=== PATIENT | male | born 1995 | race Caucasian/White ===

== ENCOUNTER 2016-06-25 11:47 | Inpatient (IN) | payer MEDICAID ==
[~2016-06-25] VITALS: Ht 182.9 cm; Wt 63.5 kg
[~2016-06-25 11:47] MED LIST: IBUPROFEN600 MG ORAL; NORCO 5-325 TA1 EACH ORAL; PENICILLIN V P500 MG PO; PREDNISONE20 MG ORAL
[2016-06-25 12:00] VITALS: BP 119/66
[2016-06-25] MEDS ORDERED: NKM (12:00)
[2016-06-25] MEDS ORDERED: Ipratropium 0.02% Inh Soln 2.5ml UD HHN ONE (12:15)
[2016-06-25] MEDS ORDERED: cefTRIAXone 1 GM in NS 55 ML IV ONE (12:15)
[2016-06-25] MEDS ORDERED: fentaNYL 100 mcg/2 mL IV ONE (12:15)
[2016-06-25] MEDS ORDERED: Albuterol ud Inhalation HHN ONE ×2 (12:15→14:30)
[2016-06-25] MEDS ORDERED: Solu-MEDROL 125mg Inj IVP ONE (12:15)
[2016-06-25] MEDS ORDERED: Azithromycin 500 MG in NS 275 ML IV ONE (12:15)
--- NOTE | 2016-06-25 12:33 | Emergency Room Report ---
History of Present Illness General Chief Complaint: Upper Respiratory Illness Source: Patient Present Illness HPI Patient presents with dyspnea and cough wheezing and in fevers and not eating. This worsened over the last few weeks. He is taken several doses of amoxicillin and didn't get better. He smokes. He's never had a diagnosis of asthma. He's had difficulty sleeping because of dyspnea and also cough and wheezing. He has abdominal pain due to cough. He denies any vomiting or diarrhea. This has been going on for several weeks with worsening over the past 3-4 days. Slight headache. No dizziness. No rashes. No extremity pain. No flu shot. 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 Reviewed Nursing Documentation: PMH: Agreed, PSxH: Agreed Nursing Documentation-PMH Past Medical History: No Stated History Review of Systems All Other Systems: negative except mentioned in HPI Physical Exam Vital Signs Date Time Temp Pulse Resp B/P Pulse Ox O2 Delivery O2 Flow Rate FiO2 06/25/16 11:51 98.8 123 24 112/72 92 Room Air Sp02 EP Interpretation: reviewed, normal, abnormal - low as interpreted by me General Appearance: well appearing, no apparent distress, GCS 15 Head: normocephalic Eyes: bilateral eye PERRL, bilateral eye normal inspection ENT: moist mucus membranes Neck: supple Respiratory: rales - R, wheezing, expiration, inspiration Cardiovascular #1: regular rate, rhythm Cardiovascular #2: 2+ radial (R) Gastrointestinal: normal inspection, normal bowel sounds, non tender, no mass, non-distended Musculoskeletal: back normal, gait/station normal, normal range of motion Neurologic: alert, oriented x3, grossly normal Psychiatric: mood/affect normal Skin: normal inspection, warm/dry Medical Decision Making Diagnostic Impression: Primary Impression: Influenza A Additional Impressions: Bronchospasm Hypoxia ER Course Patient presents with bronchospasm and hypoxia. No prior history of asthma. DDx: pneumonia, bronchitis, new onset asthma. Patient in mild distress with hypoxia and needs emergent evaluation with labs including blood cultures and influenza. Treatment with IV hydration, breathing treatments and initiation of antibiotics. Labs with normal WBC. CXR without infiltrate. + influenza A. Tamiflu started. Still with wheezing and NG with hypoxia, though somewhat improved. Repeat treatment. Admit med Dr. Norwood. Rhythm Strip Diag. Results EP Interpretation: yes Rhythm: NSR, no PVC's, no ectopy Chest X-Ray Diagnostic Results EP Interpretation: Yes Findings: no consolidation, no effusion, no pneumothorax, no acute cardiopulmonary disease Number of Views: 1 Status: improved Disposition: ADMITTED INPATIENT Condition: Serious Referrals: KWASI MCPHERSON M.D. (PCP) Robles Mcmanus M.D. Jun 25, 2016 12:33
[2016-06-25] MEDS ORDERED: Azithromycin Inj IV ONE (12:43)
[2016-06-25] MEDS ORDERED: NS 55 ML IV ONE (12:45)
[2016-06-25] MEDS ORDERED: NS 275 ML ONE (12:45)
[2016-06-25] MEDS ORDERED: Tubing IV Cassette IV ONE (12:45)
[2016-06-25] MEDS ORDERED: Tubing IV Secondary IV ONE (12:45)
[2016-06-25 12:55] LABS: BASOPHILS % (AUTO) 1.3 % (0.0-2.0); EOSINOPHILS % (AUTO) 0.3 % (0.0-3.0); MEAN CORPUSCULAR HEMOGLOBIN 33.3 PG (27.0-31.0); MEAN CORPUSCULAR HGB CONC 34.1 G/DL (32.0-36.0); MEAN CORPUSCULAR VOLUME 98 FL (80-99); MEAN PLATELET VOLUME 6.3 FL (6.5-10.1); NEUTROPHILS % (AUTO) 84.4 % (45.0-75.0); PLATELET COUNT 180 K/UL (150-450); RED BLOOD COUNT 4.64 M/UL (4.70-6.10); RED CELL DISTRIBUTION WIDTH 11.6 % (11.6-14.8); WHITE BLOOD COUNT 9.3 K/UL (4.8-10.8)
[2016-06-25 13:02] LABS: INR 1.1 (0.9-1.1); PROTHROMBIN TIME 11.3 SEC (9.30-11.50)
[2016-06-25 13:10] LABS: ALANINE AMINOTRANSFERASE 11 U/L (3-41); ALBUMIN/GLOBULIN RATIO 1.5 (1.0-2.7); ANION GAP 19 (5-15); ASPARTATE AMINO TRANSFERASE 19 U/L (5-40); CARBON DIOXIDE 23 mEQ/L (20-30); CHLORIDE 96 mEQ/L (98-107); CREATININE 0.8 mg/dL (0.7-1.2); GLOMERULAR FILTRATION RATE > 60 mL/min (>60); HEMOLYSIS 6; POTASSIUM 3.9 mEQ/L (3.4-4.9); SODIUM 138 mEQ/L (135-145)
[2016-06-25] MEDS ORDERED: Oseltamivir 75mg cap ORAL STA (13:14)
[2016-06-25 13:31] LABS: BILIRUBIN,DIRECT 0.3 mg/dL (0.1-0.3)
[2016-06-25 14:00] VITALS: BP 129/71
[2016-06-25 15:19] VITALS: BP 123/49
--- NOTE | 2016-06-25 15:26 | Diagnostic Imaging Report ---
Indication: COUGH Technique: One view of the chest Comparison: 08/29/2011 Findings: Lungs and pleural spaces are clear. Heart size is normal . No significant change Impression: No acute process
[2016-06-25] MEDS ORDERED: Nitroglycerin Subl 0.4mg tab (Bottle Of 25) SL PRN (18:00)
[2016-06-25] MEDS ORDERED: LORazepam Inj 2mg/ml 1ml IV PRN (18:00)
[2016-06-25] MEDS ORDERED: Morphine Sulfate 2mg/ml Inj IVP PRN (18:00)
[2016-06-25] MEDS ORDERED: Ketorolac 30mg Inj IV PRN (18:00)
[2016-06-25] MEDS: Solu-MEDROL 125mg Inj IV SCH (19:01)
[2016-06-25] MEDS: Theophylline ER 100mg ORAL SCH (20:44)
[2016-06-25] MEDS: Zoysn 3.37gm in D5W 110ml IVPB SCH (20:45)
[2016-06-25] MEDS ORDERED: NovoLOG Insulin Flexpen SUBQ SCH (21:00)
[2016-06-25] MEDS: Heparin 5000 units/ml inj SUBQ SCH (21:12)
[2016-06-25 21:18] VITALS: BP 97/68
[2016-06-25] MEDS ORDERED: Piperacillin/Tazobactam 2.25 GM in D5W 55 ML IV SCH (22:00)
[2016-06-25] MEDS: DuoNeb 0.5-3(2.5)mg/3ml neb HHN PRN (23:20)
[2016-06-26] VITALS: BP 124/55
[2016-06-26] MEDS: Solu-MEDROL 125mg Inj IV SCH ×4 (00:23→17:18)
[2016-06-26] MEDS: Zoysn 3.37gm in D5W 110ml IVPB SCH ×3 (03:55→20:12)
[2016-06-26 04:00] VITALS: BP 122/61
[2016-06-26] MEDS: DuoNeb 0.5-3(2.5)mg/3ml neb HHN PRN ×4 (07:58→22:18)
[2016-06-26 08:20] VITALS: BP 132/63
[2016-06-26] MEDS: Heparin 5000 units/ml inj SUBQ SCH ×2 (08:28→20:12)
[2016-06-26] MEDS: Theophylline ER 100mg ORAL SCH ×2 (09:00→20:12)
[2016-06-26 11:52] VITALS: BP 128/49
[2016-06-26 16:01] VITALS: BP 123/67
[2016-06-26 20:01] VITALS: BP 122/72
--- NOTE | 2016-06-26 22:47 | History and Physical ---
History of Present Illness General Date patient seen: Jun 26, 2016 Reason for Hospitalization: Upper Respiratory Illness Present Illness HPI 20 year old patient presents with dyspnea and cough wheezing and in fevers and not eating. This worsened over the last few weeks. He is taken several doses of amoxicillin and didn't get better. This has been going on for several weeks with worsening over the past 3-4 days. He was diagnosed to have H-flu and admitted for symptomatic treatment. Allergies: Coded Allergies: No Known Allergies (Unverified , 07/09/13) Medication History Scheduled Ibuprofen* (Motrin*), 600 MG ORAL Q8H No Known Medications* (NKM - No Known Medications*), 0 ., (Reported) Penicillin V Potassium* (Penvk*), 500 MG PO Q12HR Prednisone* (Prednisone*), 60 MG ORAL DAILY Scheduled PRN Hydrocodone Bit/Acetaminophen 5-325* ([place] 5-325*), 1 TAB ORAL Q6H PRN for For Pain Ibuprofen* (Motrin*), 600 MG ORAL Q8H PRN for For Pain Patient History Healthcare decision maker Resuscitation status Full Code Advanced Directive on File Past Medical/Surgical History Past Medical/Surgical History: (1) No significant past medical history Review of Systems All Other Systems: negative except mentioned in HPI Physical Exam Lines, tubes and drains: peripheral HEENT: normocephalic Neck: non-tender, normal inspection Respiratory/Chest: chest wall non-tender, lungs clear Cardiovascular/Chest: normal peripheral pulses, regular rhythm Abdomen: normal bowel sounds, non tender Genitourinary/Rectal: normal genital exam Last 24 Hour Vital Signs Date Time Temp Pulse Resp B/P Pulse Ox O2 Delivery O2 Flow Rate FiO2 06/26/16 22:10 95 18 100 Room Air 06/26/16 22:00 90 18 98 Room Air 06/26/16 20:01 97.9 67 20 122/72 94 Room Air 06/26/16 19:00 Room Air 06/26/16 19:00 Room Air 06/26/16 16:01 97.5 96 22 123/67 92 Room Air 06/26/16 14:44 92 18 98 Room Air 06/26/16 14:44 85 18 98 Room Air 06/26/16 14:44 92 18 99 Room Air 06/26/16 14:44 85 18 98 Room Air 21 06/26/16 11:52 97.5 101 20 128/49 100 Room Air 06/26/16 11:35 81 18 97 Room Air 06/26/16 11:35 91 18 97 Room Air 06/26/16 11:35 84 18 98 Room Air 21 06/26/16 11:35 91 18 100 Room Air 06/26/16 08:57 98.5 06/26/16 08:20 98.5 117 20 132/63 93 Room Air 06/26/16 07:58 82 18 96 Room Air 21 06/26/16 07:58 79 18 96 Room Air 06/26/16 07:58 90 18 100 Room Air 06/26/16 07:58 90 18 96 Room Air 06/26/16 04:00 97.3 74 20 122/61 93 Room Air 06/26/16 02:25 95 20 95 Room Air 21 06/26/16 02:25 95 18 95 Room Air 06/26/16 00:00 96.8 102 20 124/55 97 Room Air 06/25/16 23:26 100 18 100 Room Air 06/25/16 23:25 99 18 95 Room Air 06/25/16 23:20 105 20 99 Room Air 21 06/25/16 23:15 99 18 96 Room Air Intake and Output 06/25/16 06/26/16 19:00 07:00 Intake Total 1330 ml 942.5 ml Balance 1330 ml 942.5 ml Intake Oral 750 ml IV Total 1330 ml 192.5 ml # Voids 3 Height (Feet): 6 Height (Inches): 0.00 Weight (Pounds): 140 Medications Current Medications Medications (Trade) Dose Ordered Sig/Heather Route PRN Reason Start Time Stop Time Status Last Admin Dose Admin Albuterol/ Ipratropium (DuoNeb 0.5-3(2.5)mg/3ml) 3 ml Q4H PRN HHN dyspnea 06/25/16 18:00 06/30/16 17:59 06/26/16 22:18 Dextrose STAT PRN IV Hypoglycemia 06/25/16 18:30 07/25/16 18:29 Heparin Sodium (Porcine) (Heparin 5000 units/ml) 5,000 units EVERY 12 HOURS SUBQ 06/25/16 21:00 07/25/16 20:59 1/25/17 20:12 Ketorolac Tromethamine (Toradol 30mg) 30 mg Q8H PRN IV moderate pain 4-6 06/25/16 18:00 06/30/16 17:59 06/26/16 08:27 Lorazepam (Ativan 2mg/ml 1ml) 0.5 mg Q4H PRN IV For Anxiety 06/25/16 18:00 07/02/16 17:59 Methylprednisolone Sodium Succinate (Solu-MEDROL) 60 mg EVERY 6 HOURS IV 06/25/16 18:30 07/25/16 18:29 06/26/16 17:18 Morphine Sulfate (Morphine Sulfate) 2 mg Q4H PRN IVP Severe Pain (Pain Scale 7-10) 06/25/16 18:00 07/02/16 17:59 06/26/16 17:19 Nitroglycerin (Ntg) 0.4 mg Q5M X 3 DOSES PRN SL Prn Chest Pain 06/25/16 18:00 07/25/16 17:59 Ondansetron HCl (Zofran) 4 mg Q6H PRN IVP Nausea & Vomiting 06/25/16 18:00 07/25/16 17:59 Piperacillin Sod/ Tazobactam Sod/ Dextrose (Zosyn/D5W) 110 ml @ 27.5 mls/hr Q8H IVPB 06/25/16 20:00 07/02/16 19:59 06/26/16 20:12 Promethazine HCl/ Codeine (Phenergan with Codeine) 5 ml Q6H PRN ORAL cough 06/25/16 18:00 07/25/16 17:59 Temazepam (Restoril) 15 mg HSPRN PRN ORAL Insomnia 06/25/16 21:00 07/02/16 20:59 06/25/16 23:03 Theophylline (Lester-Dur) 100 mg EVERY 12 HOURS ORAL 06/25/16 21:00 07/25/16 20:59 06/26/16 20:12 Assessment/Plan Problem List: (1) Asthmatic bronchitis with exacerbation ICD Codes: J45.901 - Unspecified asthma with (acute) exacerbation SNOMED: 009092574 (2) Influenza A ICD Codes: J10.1 - Influenza due to other identified influenza virus with other respiratory manifestations SNOMED: 619282889 (3) Bronchospasm ICD Codes: J98.01 - Acute bronchospasm SNOMED: 8144922 (4) Strep pharyngitis ICD Codes: J02.0 - Streptococcal pharyngitis SNOMED: 10379481 Assessment/Plan IV antibiotics respiratory treatment ID to see IGGY EDWARDS Jun 26, 2016 22:47
--- NOTE | 2016-06-26 22:57 | Consultation ---
Consult Note Consult Note ID Dic # [id number] CLAY YIN M.D. Jun 26, 2016 22:57
[2016-06-27] VITALS: BP 124/70
[2016-06-27] MEDS ORDERED: Azithromycin Inj IV ONE (00:20)
[2016-06-27] MEDS: Oseltamivir 75mg cap ORAL SCH ×3 (00:30→09:57)
[2016-06-27] MEDS: Promethazine/Codeine 5ml UD ORAL PRN ×2 (00:30→09:57)
[2016-06-27] MEDS: Solu-MEDROL 125mg Inj IV SCH ×4 (00:30→09:57)
[2016-06-27] MEDS ORDERED: Azithromycin 500 MG in D5W 275 ML IV SCH (01:00)
[2016-06-27 04:00] VITALS: BP 121/71
--- NOTE | 2016-06-27 05:07 | Consultation ---
DATE OF CONSULTATION: INFECTIOUS DISEASE CONSULTATION CONSULTING PHYSICIAN: Cas Carrera M.D. REFERRING PHYSICIAN: Brannon Norwood M.D. REASON FOR CONSULTATION: Influenza, probable pneumonia, and antibiotic management. HISTORY OF PRESENT ILLNESS: The patient is a 20-year-old male, who came to the hospital for cough that is productive and wheezing. The patient had influenza test came positive. The patient took amoxicillin for two days. He felt significant improvement. The patient is a smoker. An Infectious Disease consultation has been requested for further evaluation of the patient's antibiotic management. PAST MEDICAL HISTORY: Significant for asthma. ALLERGIES: No known drug allergies. SOCIAL HISTORY: . REVIEW OF SYSTEMS: A 10-point review was done except for what was mentioned was negative. PHYSICAL EXAMINATION: VITAL SIGNS: Temperature 97.9, T-max 100.9 degrees, pulse 86, respiratory rate 18, and blood pressure 132/72. HEENT: Mild pale conjunctivae. No icterus. CHEST: Coarse breathing sounds. HEART: S1 and S2. ABDOMEN: Soft and nontender. EXTREMITIES: No cyanosis. NEUROLOGIC: Awake. LABORATORY DATA: White blood cells 9.3, hemoglobin 16, and platelets 118. BUN 12 and creatinine 0.8. ALT, AST and alkaline phosphatase are within normal range. was obtained, positive for influenza A. Sputum culture is pending. Chest x-ray, no acute process. ASSESSMENT: The patient is a 20-year-old male with multiple medical problems was admitted to this medical center with cough. The patient's came positive. The patient appeared to have asthma exacerbation due to influenza. PLAN: 1. We change Zosyn to Tamiflu and Zithromax. 2. Monitor CBCs and BMP. 3. Monitor cultures and chest x-ray. 4. Based on patient's clinical course and laboratories, we do further recommendations. Cas Carrera M.D. DR: Kathy JOB#: [id number] CC:
[2016-06-27] MEDS: Heparin 5000 units/ml inj SUBQ SCH (09:00)
[2016-06-27 09:06] VITALS: BP 109/46
[2016-06-27] MEDS: Theophylline ER 100mg ORAL SCH ×2 (09:52→09:57)
--- NOTE | 2016-06-27 10:03 | Infectious Diseases Prog Note ---
Assessment/Plan Assessment/Plan A: The patient is a 20-year-old male, w Low grade fever .improved Influenza, A + Bronchitis Cough Asthma PLAN: cont Tamiflu and Zithromax d# 2/ 5 Monitor CBCs and BMP Monitor cultures Monitor chest x-ray Subjective Constitutional: Denies: anorexia, chills, drenching sweats, fatigue, fever, no symptoms, other Allergies: Coded Allergies: No Known Allergies (Unverified , 07/09/13) Objective Vital Signs Last 24 Hour Vital Signs Date Time Temp Pulse Resp B/P Pulse Ox O2 Delivery O2 Flow Rate FiO2 06/27/16 09:06 97.0 68 20 109/46 94 Room Air 06/27/16 07:50 81 18 99 Room Air 06/27/16 07:50 81 18 99 Room Air 06/27/16 04:00 97.9 68 18 121/71 93 Room Air 06/27/16 02:54 Room Air 06/27/16 02:54 Room Air 06/27/16 00:00 98.1 71 18 124/70 91 Room Air 06/26/16 23:22 Room Air 06/26/16 23:22 Room Air 06/26/16 22:10 95 18 100 Room Air 06/26/16 22:00 90 18 98 Room Air 06/26/16 20:01 97.9 67 20 122/72 94 Room Air 06/26/16 19:00 Room Air 06/26/16 19:00 Room Air 06/26/16 16:01 97.5 96 22 123/67 92 Room Air 06/26/16 14:44 92 18 98 Room Air 06/26/16 14:44 85 18 98 Room Air 06/26/16 14:44 92 18 99 Room Air 06/26/16 14:44 85 18 98 Room Air 06/26/16 11:52 97.5 101 20 128/49 100 Room Air 06/26/16 11:35 81 18 97 Room Air 06/26/16 11:35 91 18 97 Room Air 06/26/16 11:35 84 18 98 Room Air 21 06/26/16 11:35 91 18 100 Room Air Height (Feet): 6 Height (Inches): 0.00 Weight (Pounds): 140 HEENT: anicteric Respiratory/Chest: no respiratory distress Cardiovascular: regularly irregular Abdomen: no scars Microbiology Date/Time Source Procedure Growth Status 06/25/16 12:30 Blood Blood Culture - Preliminary NO GROWTH AFTER 24 HOURS Resulted 06/25/16 12:20 Blood Blood Culture - Preliminary NO GROWTH AFTER 24 HOURS Resulted 06/25/16 13:25 Sputum Gram Stain - Final Complete 06/25/16 13:25 Sputum Sputum Culture - Final NORMAL UPPER RESPIRATORY OSWALDO PRESENT Complete 06/25/16 11:20 Nasal Nares Influenza Types A,B Antigen (RAMÓN) - Final Complete Current Medications Medications (Trade) Dose Ordered Sig/Heather Route PRN Reason Start Time Stop Time Status Last Admin Dose Admin Albuterol/ Ipratropium (DuoNeb 0.5-3(2.5)mg/3ml) 3 ml Q4H PRN HHN dyspnea 06/25/16 18:00 06/30/16 17:59 06/26/16 22:18 Azithromycin/ Dextrose (Zithromax/D5W) 275 ml @ 275 mls/hr Q24HRS IV 06/27/16 01:00 07/03/16 01:59 06/27/16 00:30 Dextrose STAT PRN IV Hypoglycemia 06/25/16 18:30 07/25/16 18:29 Heparin Sodium (Porcine) (Heparin 5000 units/ml) 5,000 units EVERY 12 HOURS SUBQ 06/25/16 21:00 07/25/16 20:59 06/26/16 20:12 Ketorolac Tromethamine (Toradol 30mg) 30 mg Q8H PRN IV moderate pain 4-6 06/25/16 18:00 06/30/16 17:59 06/26/16 08:27 Lorazepam (Ativan 2mg/ml 1ml) 0.5 mg Q4H PRN IV For Anxiety 06/25/16 18:00 07/02/16 17:59 Methylprednisolone Sodium Succinate (Solu-MEDROL) 60 mg EVERY 6 HOURS IV 06/25/16 18:30 07/25/16 18:29 06/27/16 09:52 Morphine Sulfate (Morphine Sulfate) 2 mg Q4H PRN IVP Severe Pain (Pain Scale 7-10) 06/25/16 18:00 07/02/16 17:59 06/26/16 17:19 Nitroglycerin (Ntg) 0.4 mg Q5M X 3 DOSES PRN SL Prn Chest Pain 06/25/16 18:00 07/25/16 17:59 Ondansetron HCl (Zofran) 4 mg Q6H PRN IVP Nausea & Vomiting 06/25/16 18:00 07/25/16 17:59 Oseltamivir Phosphate (Tamiflu) 75 mg BID@0900,2100 ORAL 06/27/16 00:00 07/02/16 00:00 06/27/16 09:52 Promethazine HCl/ Codeine (Phenergan with Codeine) 5 ml Q6H PRN ORAL cough 06/25/16 18:00 07/25/16 17:59 06/27/16 00:30 Temazepam (Restoril) 15 mg HSPRN PRN ORAL Insomnia 06/25/16 21:00 07/02/16 20:59 06/27/16 00:30 Theophylline (Lester-Dur) 100 mg EVERY 12 HOURS ORAL 06/25/16 21:00 07/25/16 20:59 06/27/16 09:52 CLAY YIN M.D. Jun 27, 2016 10:03
[2016-06-27] MEDS: DuoNeb 0.5-3(2.5)mg/3ml neb HHN PRN (11:05)
[2016-06-27 12:31] VITALS: BP 124/70
[2016-06-27 16:03] VITALS: BP 115/69
[2016-06-27] MEDS ORDERED: D5W 275ml ONE (16:51)
--- NOTE | 2016-06-27 16:58 | Pulmonology Progress Note ---
Assessment/Plan Problems: (1) Asthmatic bronchitis with exacerbation (2) Influenza A (3) Bronchospasm (4) Strep pharyngitis Assessment/Plan improving dc home with oral meds Subjective ROS Limited/Unobtainable: No Interval Events: doing better, still sore throat Allergies: Coded Allergies: No Known Allergies (Unverified , 07/09/13) Objective Last 24 Hour Vital Signs Date Time Temp Pulse Resp B/P Pulse Ox O2 Delivery O2 Flow Rate FiO2 06/27/16 16:03 97.9 85 20 115/69 95 Room Air 06/27/16 12:31 97.7 107 20 124/70 94 Room Air 06/27/16 11:15 71 18 99 Room Air 06/27/16 11:05 71 16 99 Room Air 21 06/27/16 11:05 71 16 99 Room Air 06/27/16 09:06 97.0 68 20 109/46 94 Room Air 06/27/16 07:50 81 18 99 Room Air 21 06/27/16 07:50 81 18 99 Room Air 06/27/16 04:00 97.9 68 18 121/71 93 Room Air 06/27/16 02:54 Room Air 06/27/16 02:54 Room Air 06/27/16 00:00 98.1 71 18 124/70 91 Room Air 06/26/16 23:22 Room Air 06/26/16 23:22 Room Air 06/26/16 22:10 95 18 100 Room Air 06/26/16 22:00 90 18 98 Room Air 06/26/16 20:01 97.9 67 20 122/72 94 Room Air 06/26/16 19:00 Room Air 06/26/16 19:00 Room Air Intake and Output 06/26/16 06/27/16 19:00 07:00 Intake Total 857.5 ml 1085.0 ml Balance 857.5 ml 1085.0 ml Intake Oral 720 ml 700 ml IV Total 137.5 ml 385.0 ml # Voids 3 General Appearance: WD/WN HEENT: normocephalic, atraumatic Respiratory/Chest: chest wall non-tender, normal breath sounds Cardiovascular: normal peripheral pulses, normal rate Abdomen: normal bowel sounds, soft, non tender Genitourinary: normal external genitalia Extremities: no clubbing Skin: no ulcers 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 Microbiology Date/Time Source Procedure Growth Status 06/25/16 12:30 Blood Blood Culture - Preliminary NO GROWTH AFTER 24 HOURS Resulted 06/25/16 12:20 Blood Blood Culture - Preliminary NO GROWTH AFTER 24 HOURS Resulted 06/25/16 13:25 Sputum Gram Stain - Final Complete 06/25/16 13:25 Sputum Sputum Culture - Final NORMAL UPPER RESPIRATORY OSWALDO PRESENT Complete 06/25/16 11:20 Nasal Nares Influenza Types A,B Antigen (RAMÓN) - Final Complete Current Medications Medications (Trade) Dose Ordered Sig/Heather Route PRN Reason Start Time Stop Time Status Last Admin Dose Admin Albuterol/ Ipratropium (DuoNeb 0.5-3(2.5)mg/3ml) 3 ml Q4H PRN HHN dyspnea 06/25/16 18:00 06/30/16 17:59 06/27/16 11:05 Azithromycin/ Dextrose (Zithromax/D5W) 275 ml @ 275 mls/hr Q24HRS IV 06/27/16 01:00 07/03/16 01:59 06/27/16 00:30 Dextrose STAT PRN IV Hypoglycemia 06/25/16 18:30 07/25/16 18:29 Heparin Sodium (Porcine) (Heparin 5000 units/ml) 5,000 units EVERY 12 HOURS SUBQ 06/25/16 21:00 07/25/16 20:59 06/26/16 20:12 Ketorolac Tromethamine (Toradol 30mg) 30 mg Q8H PRN IV moderate pain 4-6 06/25/16 18:00 06/30/16 17:59 06/26/16 08:27 Lorazepam (Ativan 2mg/ml 1ml) 0.5 mg Q4H PRN IV For Anxiety 06/25/16 18:00 07/02/16 17:59 Methylprednisolone Sodium Succinate (Solu-MEDROL) 60 mg EVERY 6 HOURS IV 06/25/16 18:30 07/25/16 18:29 06/27/16 09:57 Morphine Sulfate (Morphine Sulfate) 2 mg Q4H PRN IVP Severe Pain (Pain Scale 7-10) 06/25/16 18:00 07/02/16 17:59 06/26/16 17:19 Nitroglycerin (Ntg) 0.4 mg Q5M X 3 DOSES PRN SL Prn Chest Pain 06/25/16 18:00 07/25/16 17:59 Ondansetron HCl (Zofran) 4 mg Q6H PRN IVP Nausea & Vomiting 06/25/16 18:00 07/25/16 17:59 Oseltamivir Phosphate (Tamiflu) 75 mg BID@0900,2100 ORAL 06/27/16 00:00 07/02/16 00:00 06/27/16 09:57 Promethazine HCl/ Codeine (Phenergan with Codeine) 5 ml Q6H PRN ORAL cough 06/25/16 18:00 07/25/16 17:59 06/27/16 09:57 Temazepam (Restoril) 15 mg HSPRN PRN ORAL Insomnia 06/25/16 21:00 07/02/16 20:59 06/27/16 00:30 Theophylline ([place]estre-Dur) 100 mg EVERY 12 HOURS ORAL 06/25/16 21:00 07/25/16 20:59 06/27/16 09:57 IGGY EDWARDS Jun 27, 2016 16:58
[2016-06-27] MEDS ORDERED: PROMETH-CODEIN 65 ML PO (17:10)
[2016-06-27] MEDS ORDERED: AZITHROMYCIN250 MG ORAL (17:12)
[2016-06-27] MEDS ORDERED: TAMIFLU75 MG ORAL (17:13)
[2016-06-28] MEDS ORDERED: IBUPROFEN600 MG ORAL (01:55)
--- NOTE | 2016-06-28 11:00 | Discharge Summary ---
Discharge Summary Hospital Course Date of Admission Jun 25, 2016 at 14:05 Date of Discharge Jun 27, 2016 at 17:50 Admitting Diagnosis influenza/bronchospasm HPI Luc Ernandez is a 20 year old male who was admitted on Jun 25, 2016 at 14: 05 for Influenza/Bronchospasm Hospital Course [id number] Discharge Discharge Disposition Patient was discharged to Home (01) Discharge Diagnoses: Diane Whittington NP Jun 28, 2016 11:00
[2016-06-28] MEDS ORDERED: CLINDAMYCIN HC300 MG ORAL (22:36)
[2016-06-28] MEDS ORDERED: PREDNISONE20 MG ORAL (22:36)
--- NOTE | 2016-06-29 00:38 | Discharge Summary 2 SIG ---
DATE OF ADMISSION: 06/25/2016 DATE OF DISCHARGE: 06/27/2016 DIRECTOR OF CASEWORK SERVICES: Cas Carrera M.D. BRIEF HOSPITAL COURSE: The patient is a 20-year-old male, who presented to the ED complaining of dyspnea with cough, wheezing, had loss of appetite, and fever. He has been having symptoms for the last three weeks and has already taken several doses of amoxicillin. Symptoms have progressively gotten worse. There was failed outpatient treatment. On evaluation at ED, influenza was positive for influenza A. He was then admitted for symptomatic treatment. He was given respiratory treatments, and was started on IV antibiotics and intravenous prednisone. The patient has history of asthma and appeared to have asthma exacerbation due to influenza. Infectious disease specialist was consulted. Zosyn was discontinued and was switched to Zithromax. He was also given Tamiflu. Low-grade fever improved. Sputum culture did not isolate any growth. Blood cultures did not isolate any growth, and he was eventually discharged home to continue p.o. antibiotics. FINAL DIAGNOSES: 1. Influenza A infection. 2. Acute asthma exacerbation. 3. Bronchospasms. 4. Streptococcal pharyngitis. 5. Bronchitis. Brannon Norwood M.D. I have been assigned to dictate discharge summary on this account and I was not involved in the patient's management. Diane Whittington N.P. DR: KYLE JOB#: [id number] CC:
== END 2016-06-27 17:50 | disposition home or self-care (01) | DRG 141 ==
LOC: ENRESERVDT → ENRESERVTM → EMR 12:13 → EDBEDREQ 13:54 → 4W 14:05 → EDBEDREQ 14:16 → 4W 22:30
DX: J45.901 Unspecified asthma with (acute) exacerbation (principal); J02.0 Streptococcal pharyngitis; J40 Bronchitis, not specified as acute or chronic; R09.02 Hypoxemia; J11.1 Influenza due to unidentified influenza virus with other respiratory manifestations
CPT/HCPCS: 36415; 71010; 80053; 82248; 82550; 83605; 85025; 85610; 85730; 86710; 87040; 87070; 87205; 94640; J1815; J2405; J7620

== ENCOUNTER 2016-06-28 00:16 | Emergency (ER) | payer MEDICAID ==
[~2016-06-28] VITALS: Ht 185.4 cm; Wt 63.5 kg
[~2016-06-28 00:16] MED LIST changes: +AZITHROMYCIN250 MG ORAL; +NKM; +PROMETH-CODEIN 65 ML PO; +TAMIFLU75 MG ORAL
--- NOTE | 2016-06-28 00:44 | Emergency Room Report ---
History of Present Illness General Chief Complaint: Pain Source: Patient Present Illness HPI This is a 20-year-old male who presents with left neck swelling. He was admitted here couple days ago for influenza. He was just discharged yesterday. Woke up today with swelling in his neck. No fever or chills. Better with ibuprofen. No nausea no vomiting. Has a history of peritonsillar abscess in the past. No other complaint. Worse with swallowing. Allergies: Coded Allergies: No Known Allergies (Unverified , 07/09/13) Patient History Past Medical History: see triage record, old chart reviewed Past Surgical History: none Pertinent Family History: none Social History: Denies: smoking Immunizations: other Reviewed Nursing Documentation: PMH: Agreed, PSxH: Agreed Nursing Documentation-PMH Past Medical History: No Stated History Hx Cardiac Problems: No Hx Cancer: No Hx Gastrointestinal Problems: No Hx Neurological Problems: No Review of Systems Eye: Denies: blurred vision, eye pain ENT: Denies: ear pain, nose congestion, throat swelling Respiratory: Denies: cough, shortness of breath Cardiovascular: Denies: chest pain, palpitations Gastrointestinal: Denies: abdominal pain, diarrhea, nausea, vomiting Musculoskeletal: Denies: back pain, joint pain Skin: Denies: rash Neurological: Denies: headache, numbness Endocrine: Denies: increased thirst, increased urine Hematologic/Lymphatic: Denies: easy bruising All Other Systems: negative except mentioned in HPI Physical Exam Vital Signs Date Time Temp Pulse Resp B/P Pulse Ox O2 Delivery O2 Flow Rate FiO2 06/28/16 00:24 98.1 81 16 109/70 96 Room Air vitals normal Sp02 EP Interpretation: reviewed, normal General Appearance: well appearing, no apparent distress, alert Head: normocephalic, atraumatic Eyes: bilateral eye EOMI, bilateral eye PERRL ENT: hearing grossly normal, normal pharynx Neck: full range of motion, supple, no meningismus, other - Left neck with edema to arrival it and submental node. No stridor. No redness. Respiratory: chest non-tender, lungs clear, normal breath sounds Cardiovascular #1: regular rate, rhythm, no murmur Gastrointestinal: normal bowel sounds, non tender, no mass, no organomegaly, no bruit, non-distended Musculoskeletal: back normal, gait/station normal, normal range of motion Neurologic: alert, oriented x3 Psychiatric: mood/affect normal Skin: warm/dry Medical Decision Making Diagnostic Impression: Primary Impression: Sialadenitis ER Course Patient presents with inflammation and swelling of the submandibular gland. No evidence of abscess. We'll discharge home with reassurance. Will refer to ENT. CT/MRI/US Diagnostic Results CT/MRI/US Diagnostic Results : Imaging Test Ordered: CT soft tissue neck Impression Read by radiologist. Enlargement of the submandibular gland with enhancement Last Vital Signs Date Time Temp Pulse Resp B/P Pulse Ox O2 Delivery O2 Flow Rate FiO2 06/28/16 00:24 98.1 81 16 109/70 96 Room Air Status: improved Disposition: HOME, SELF-CARE Condition: Stable Scripts Ibuprofen* (MOTRIN*) 600 Mg Tablet 600 MG ORAL THREE TIMES A DAY, #30 TAB 0 Refills Prov: WILLAM MIN M.D. 06/28/16 Additional Instructions: Warm compress to the area. Increase fluid and sour food, like lemon drops. Followup your DrVanita in 2-3 days. Return if worse. You may need a referral to see ENT WILLAM Rosa M.D. Jun 28, 2016 00:44
[2016-06-28] MEDS ORDERED: IBUPROFEN600 MG ORAL (01:55)
[2016-06-28 02:01] VITALS: BP 110/74
[2016-06-28 02:08] VITALS: BP 110/74
--- NOTE | 2016-06-28 15:49 | Diagnostic Imaging Report ---
Indication: Neck pain and swelling Technique: Continuous helical transaxial imaging of the neck was obtained from the aortic arch to the skull base during rapid intravenous contrast administration. Arterial phase of enhancement obtained. Coronal 2-D reformats were also obtained and maximum intensity projection images in multiple planes. Study obtained in a Siemens sensation [address] Total Dose length Product (DLP): [address] Dose Index Volume (CTDIvol): 17 mGy Comparison: None Findings: The aortic arch is not visualized on this exam. The origins of the brachiocephalic artery, left common carotid and left subclavian arteries are not seen in the low the [id number]. That said, the vessels mentioned as well as the right common carotid artery, both internal carotid arteries below the skull base and both vertebral arteries appear widely patent. The right vertebral artery is dominant. There is soft tissue swelling along the left side of the neck in the area of the submandibular gland. The left submandibular gland is abnormally enlarged and shows low linear attenuation foci due to edema. There is generalized edema surrounding the gland with some reactive lymph nodes present. There are no calcifications in the submandibular gland or sublingual regions. The findings likely represent sialadenitis. There is no abscess. Pharyngeal mucosal spaces as visualized appear normal. There is mucosal thickening in the ethmoid and maxillary sinuses. There is under pneumatization of the right mastoid region. Impression: Evidence of left submandibular gland enlargement and surrounding reactive edema and inflammatory change. Findings consistent with sialadenitis. No abscess. Normal CTA of the extracranial carotid arteries and vertebral arteries.
[2016-06-28] MEDS ORDERED: CLINDAMYCIN HC300 MG ORAL (22:36)
[2016-06-28] MEDS ORDERED: PREDNISONE20 MG ORAL (22:36)
== END 2016-06-28 02:08 | disposition home or self-care (01) ==
LOC: EMR 00:40
DX: K11.20 Sialoadenitis, unspecified (principal)
CPT/HCPCS: 70498; 99284; Q9967

== ENCOUNTER 2016-06-28 20:47 | Emergency (ER) | payer MEDICAID ==
[~2016-06-28] VITALS: Ht 182.9 cm; Wt 63.5 kg
[2016-06-28 21:11] VITALS: BP 120/70
[2016-06-28] MEDS ORDERED: Ketorolac 30mg Inj IV ONE (21:45)
[2016-06-28] MEDS ORDERED: Dexamethasone 4mg/ml vial IVP ONE (21:45)
[2016-06-28 22:36] VITALS: BP 115/77
[2016-06-28] MEDS ORDERED: PREDNISONE20 MG ORAL (22:36)
[2016-06-28] MEDS ORDERED: CLINDAMYCIN HC300 MG ORAL (22:36)
--- NOTE | 2016-06-28 23:20 | Emergency Room Report ---
History of Present Illness General Chief Complaint: Pain Source: Patient Present Illness HPI 20-year-old male presents ED complaining of painful swelling to his left side of neck. Patient states the symptoms started approximately 2 days ago. States symptoms started after he was discharged from [facility] for treatment of influenza. Patient was seen last night in emergency room. Patient had CT which showed some in the liver gland swelling. Diagnosed with sialoadenitis. Patient states symptoms are not getting better and feels swelling is getting worse. Pain is throbbing, 7/10, nonradiating. Denies any fevers or chills. Denies difficulty swallowing. Denies trouble breathing. No aggravating or relieving factors. Denies any other associated symptoms Allergies: Coded Allergies: No Known Allergies (Unverified , 07/09/13) Patient History Past Medical History: none Past Surgical History: none Pertinent Family History: none Social History: Denies: alcohol use, drug use, smoking Immunizations: UTD Reviewed Nursing Documentation: PMH: Agreed, PSxH: Agreed Nursing Documentation-PMH Past Medical History: No Stated History Hx Cardiac Problems: No Hx Cancer: No Hx Gastrointestinal Problems: No Hx Neurological Problems: No Review of Systems All Other Systems: negative except mentioned in HPI Physical Exam Vital Signs Date Time Temp Pulse Resp B/P Pulse Ox O2 Delivery O2 Flow Rate FiO2 06/28/16 20:58 97.9 93 16 120/68 94 Room Air Sp02 EP Interpretation: reviewed, normal General Appearance: no apparent distress, alert, GCS 15, non-toxic Head: normocephalic Eyes: bilateral eye PERRL, bilateral eye normal inspection ENT: hearing grossly normal, normal pharynx, no angioedema, normal voice, TMs + canals normal Neck: full range of motion, supple/symm/no masses, other - L submandibular swelling. no fluctuance. no stridor Respiratory: chest non-tender, lungs clear, normal breath sounds, speaking full sentences Cardiovascular #1: regular rate, rhythm, no edema Gastrointestinal: normal bowel sounds, non tender, soft, non-distended, no guarding, no rebound Rectal: deferred Genitourinary: no CVA tenderness Musculoskeletal: normal inspection Neurologic: alert, oriented x3, responsive, motor strength/tone normal, sensory intact, speech normal Psychiatric: normal inspection Skin: normal inspection Lymphatic: other - L submandibular swelling Medical Decision Making Diagnostic Impression: Primary Impression: Sialoadenitis of submandibular gland ER Course Hospital Course 20-year-old male presents to ED complaining of neck pain/swelling Differential diagnoses include: lymphadenopathy, pharyngitis, peritonsillar abscess Clinical course Patient placed on stretcher. After initial history, physical exam reveals a young male in no acute distress. Bilateral TM unremarkable. There is no pharyngeal erythema. uvula Midline. No evidence of peritonsillar abscess. No evidence of stridor or airway compromise on my exam On previous visit patient had CT of neck which showed submandibular gland swelling consistent with sialoadenitis. No evidence of airway compromise. Patient was recommended to take Motrin and use sour candies. Patient states symptoms are not improving. We will give dose of clindamycin IV and Decadron here patient encouraged to followup with ENT/PMD as outpatient. Return to ED if after giving antibiotics appropriate time they are not still helping Diagnosis - sialoadenitis of submandibular gland Stable and discharged home with prescriptions for clindamycin, prednisone. Instructed to followup with PMD/ENT. return to ED if symptoms recur or worsen Last Vital Signs Date Time Temp Pulse Resp B/P Pulse Ox O2 Delivery O2 Flow Rate FiO2 06/28/16 22:36 97.5 95 17 115/77 98 Room Air Status: improved Disposition: HOME, SELF-CARE Condition: Stable Scripts Prednisone* (PREDNISONE*) 20 Mg Tablet 40 MG ORAL DAILY, #10 TAB Prov: JACQUELINE MERAZ M.D. 06/28/16 Clindamycin Hcl (CLINDAMYCIN HCL) 300 Mg Capsule 300 MG ORAL THREE TIMES A DAY, #21 CAP Prov: JACQUELINE MERAZ M.D. 06/28/16 Patient Instructions: Parotitis, [id number] JACQUELINE MERAZ M.D. Jun 28, 2016 23:20
== END 2016-06-28 22:36 | disposition home or self-care (01) ==
LOC: EMR 21:18
DX: K11.20 Sialoadenitis, unspecified (principal)
CPT/HCPCS: 96374; 96375; 99284; J1100; J1885; S0077